=== PATIENT | male | born 1995 | race American Indian/Alaskan Native ===

== ENCOUNTER 2022-08-20 01:10 | Emergency (ER) | payer MEDICAID ==
[~2022-08-20] VITALS: Ht 167.6 cm; Wt 78.0 kg
[2022-08-20 01:20] VITALS: BP 118/65
--- NOTE | 2022-08-20 01:20 | NUR ---
to bed ambulatory
--- NOTE | 2022-08-20 01:37 | NUR ---
Dr. Ramos examining patient.
[2022-08-20] MEDS ORDERED: ALBUTEROL 0.083% 2.5 MG/3 ML NEBU INH ONE (01:40)
[2022-08-20] MEDS ORDERED: IPRATROPIUM 0.02% 0.5 MG/2.5 ML NEBU INH ONE (01:40)
[2022-08-20] MEDS ORDERED: predniSONE 20 MG TAB PO ONE (01:40)
--- NOTE | 2022-08-20 01:50 | NUR ---
Respiratory Therapist at bedside for respiratory intervention.
--- NOTE | 2022-08-20 02:39 | NUR ---
POST HHN TX, PT SPO2 AND WOB IMPROVED, AND WHEEZING WAS RESOLVED. PT MDI FROM HOME WAS ALMOST EXHAUSTED, AND PT STATED HE HAS NEB MEDS AT HOME BUT NEB MACHINE HIS BROKEN. ER MADE AWARE.
[2022-08-20] MEDS ORDERED: PRON INH (02:51)
[2022-08-20] MEDS ORDERED: NEBU1EAC30 MC (02:51)
[2022-08-20] MEDS ORDERED: PRED20TA5 PO (02:51)
[2022-08-20] MEDS ORDERED: ALBU0.0912 IH (02:51)
[2022-08-20] MEDS ORDERED: AZIT250T4 PO (03:09)
[2022-08-20 03:10] VITALS: BP 118/65
== END 2022-08-20 03:25 | disposition home or self-care (01) ==
LOC: MED 01:10
DX: J45.901 Unspecified asthma with (acute) exacerbation (principal); J20.9 Acute bronchitis, unspecified; F17.210 Nicotine dependence, cigarettes, uncomplicated; Z71.6 Tobacco abuse counseling; Z79.899 Other long term (current) drug therapy; Z90.49 Acquired absence of other specified parts of digestive tract
CPT/HCPCS: 71045; 94640; 99283; J7512; J7613; J7644; Q0092

== ENCOUNTER 2023-03-12 02:00 | Emergency (ER) | payer MEDICAID ==
[~2023-03-12] VITALS: Ht 167.6 cm; Wt 73.5 kg
[~2023-03-12 02:00] MED LIST: ALBU0.0912 IH; AMOX1TAB8 PO; AZIT250T4 PO; NEBU1EAC30 MC; PRED20TA5 PO; PRON INH
[2023-03-12 02:05] VITALS: BP 103/68; PULSE 102; RESP 18; TEMP 98.3; O2SAT 89
[2023-03-12] MEDS ORDERED: ALBUTEROL SULFATE/IPRATROPIU 3 ML SOL IH ONE ×2 (02:20→04:55)
[2023-03-12 02:22] VITALS: PULSE 100; RESP 18; O2SAT 87
[2023-03-12] MEDS ORDERED: methylPREDNISolone SS 125 MG/2 ML VIAL ONE (02:24)
[2023-03-12] MEDS ORDERED: WATER STERILE 10 ML MC ONE (02:24)
[2023-03-12] MEDS ORDERED: methylPREDNISolone SS 125 MG in WATER STERILE 2 ML IM ONE (02:25)
[2023-03-12 05:00] VITALS: PULSE 78; RESP 18; O2SAT 91
[2023-03-12] MEDS ORDERED: PRED20TA5 PO (05:06)
[2023-03-12] MEDS ORDERED: ALBU0.0912 IH (05:06)
[2023-03-12 05:23] VITALS: BP 109/68; PULSE 78; RESP 18; TEMP 98.3; O2SAT 96
[2023-03-12 05:47] LABS: AMPHETAMINE, URINE POSITIVE ng/ml (NEG <=1000); BARBITURATE, URINE NEGATIVE ng/ml (NEG <=200); BENZODIAZEPINE, URINE NEGATIVE ng/mL (NEG <=200); CANNABINOID, URINE NEGATIVE ng/mL (NEG <=50); COCAINE, URINE NEGATIVE ng/mL (NEG <=300); OPIATE, URINE NEGATIVE ng/mL (NEG <=2000); PHENCYCLIDINE SCREEN,URINE NEGATIVE ng/mL (NEG <=25)
== END 2023-03-12 05:23 | disposition home or self-care (01) ==
LOC: MED 02:00
DX: J45.901 Unspecified asthma with (acute) exacerbation (principal); Z79.899 Other long term (current) drug therapy; Z90.49 Acquired absence of other specified parts of digestive tract
CPT/HCPCS: 80305; 94640; 96372; 99285; J2930

== ENCOUNTER 2023-08-29 00:55 | Emergency (ER) | payer MEDICAID ==
[~2023-08-29] VITALS: Ht 167.6 cm; Wt 72.6 kg
[2023-08-29 01:05] VITALS: BP 132/85; PULSE 110; RESP 25; TEMP 98.4; O2SAT 82
[2023-08-29] MEDS ORDERED: ALBUTEROL SULFATE/IPRATROPIU 3 ML SOL IH ONE (01:21)
[2023-08-29] MEDS: ALBUTEROL SULFATE/IPRATROPIU 3 ML SOL IH ONE ×2 (01:27→01:51)
[2023-08-29 01:28] VITALS: PULSE 104; RESP 19; O2SAT 90
[2023-08-29 01:53] VITALS: PULSE 101; RESP 19; O2SAT 88
[2023-08-29] MEDS: predniSONE 20 MG TAB PO ONE (01:56)
[2023-08-29 02:41] LABS: FLU A ANTIGEN negative (NEGATIVE); FLU B ANTIGEN NEGATIVE (NEGATIVE)
[2023-08-29] MEDS ORDERED: CICL160A INH (02:49)
[2023-08-29] MEDS ORDERED: AZIT250T4 PO (02:49)
[2023-08-29] MEDS ORDERED: PRED20TA5 PO (02:49)
[2023-08-29] MEDS ORDERED: CETI10SG1 PO (02:49)
[2023-08-29] MEDS ORDERED: ALBU0.0912 IH (02:49)
[2023-08-29 03:35] VITALS: BP 132/85; PULSE 101; RESP 19; TEMP 98.4; O2SAT 90
== END 2023-08-29 03:57 | disposition home or self-care (01) ==
LOC: MED 00:55
DX: J45.901 Unspecified asthma with (acute) exacerbation (principal); J18.9 Pneumonia, unspecified organism; Z20.822 Contact with and (suspected) exposure to COVID-19; Z79.899 Other long term (current) drug therapy
CPT/HCPCS: 71046; 87426; 87804; 94640; 99284; J7512

== ENCOUNTER 2023-10-06 01:24 | Emergency (ER) | payer MEDICAID ==
[~2023-10-06] VITALS: Ht 167.6 cm; Wt 73.5 kg
[~2023-10-06 01:24] MED LIST changes: +CETI10SG1 PO; +CICL160A INH
[2023-10-06 01:44] VITALS: BP 114/69; PULSE 91; RESP 26; TEMP 98.5; O2SAT 86
[2023-10-06] MEDS ORDERED: ALBUTEROL SULFATE/IPRATROPIU 3 ML SOL IH ONE (01:45)
[2023-10-06] MEDS: ALBUTEROL SULFATE/IPRATROPIU 3 ML SOL IH ONE ×2 (01:47→03:06)
[2023-10-06 01:49] VITALS: PULSE 73; PULSE 80; RESP 8; RESP 9; O2SAT 99
[2023-10-06] MEDS ORDERED: ALBUTEROL 0.083% 2.5 MG/3 ML NEBU INH ONE (01:55)
[2023-10-06] MEDS: ALBUTEROL 0.083% 2.5 MG/3 ML NEBU INH ONE (01:56)
[2023-10-06] MEDS ORDERED: PRED20TA5 PO (01:57)
[2023-10-06] MEDS ORDERED: ALBU0.0912 IH (01:57)
[2023-10-06] MEDS: DEXAMETHASONE 10 MG/ML VIAL IM ONE (02:00)
[2023-10-06 02:06] VITALS: PULSE 80; RESP 9; O2SAT 99
[2023-10-06 02:08] VITALS: PULSE 81; RESP 10; O2SAT 95
[2023-10-06 03:06] VITALS: PULSE 86; RESP 12; O2SAT 96
[2023-10-06] MEDS ORDERED: DOXY-690 PO (03:21)
[2023-10-06 03:34] VITALS: BP 105/49; PULSE 101; RESP 14; O2SAT 94
== END 2023-10-06 03:35 | disposition home or self-care (01) ==
LOC: MED 01:24
DX: J45.901 Unspecified asthma with (acute) exacerbation (principal); J18.9 Pneumonia, unspecified organism; Z79.899 Other long term (current) drug therapy
CPT/HCPCS: 71045; 94640; 96372; 99285; J1100; J7613; Q0092